=== PATIENT | male | born 1980 | race Caucasian/White ===

== ENCOUNTER 2020-01-19 16:14 | Emergency (ER) | payer MEDICAID ==
[~2020-01-19] VITALS: Ht 175.3 cm; Wt 69.9 kg
[~2020-01-19 16:14] MED LIST: IBUP-1984 PO
[2020-01-19 16:36] VITALS: BP 137/90
[2020-01-19] MEDS ORDERED: ibuprofen tablet 400 MG TABLET PO ONE (17:00)
[2020-01-19] MEDS ORDERED: IBUP-1984 PO (17:02)
== END 2020-01-19 17:13 | disposition home or self-care (01) ==
LOC: ER 16:14
DX: M77.11 Lateral epicondylitis, right elbow (principal); F12.90 Cannabis use, unspecified, uncomplicated
CPT/HCPCS: 73090; 99283

== ENCOUNTER 2021-05-21 10:14 | Emergency (ER) | payer MEDICAID ==
[~2021-05-21] VITALS: Ht 175.3 cm; Wt 75.0 kg
[2021-05-21 11:04] VITALS: BP 174/87
[2021-05-21] MEDS ORDERED: HYDR-3965 PO (14:40)
== END 2021-05-21 16:26 | disposition home or self-care (01) ==
LOC: ER 10:14
DX: S62.307A Unspecified fracture of fifth metacarpal bone, left hand, initial encounter for closed fracture (principal); M79.642 Pain in left hand; F17.200 Nicotine dependence, unspecified, uncomplicated; F12.90 Cannabis use, unspecified, uncomplicated; Z72.89 Other problems related to lifestyle; Z98.890 Other specified postprocedural states; Z79.899 Other long term (current) drug therapy; X58.XXXA Exposure to other specified factors, initial encounter; Y93.89 Activity, other specified; Y92.89 Other specified places as the place of occurrence of the external cause; Y99.8 Other external cause status
CPT/HCPCS: 26605; 73130; 99284